=== PATIENT | female | born 1965 | race Caucasian/White ===

== ENCOUNTER 2017-04-13 20:06 | Emergency (ER) | payer BC ==
[~2017-04-13] VITALS: Ht 152.4 cm; Wt 47.8 kg
[~2017-04-13 20:06] MED LIST: ERGO500011 PO; NORT25CA2 PO; NRN/600 PO; SIMV40TA4 PO; TRAM-453 PO; TRAZ50TA35 PO
[2017-04-13 20:09] VITALS: TEMP 37.1; Ht 152.4 cm; Wt 47.8 kg
[2017-04-13] MEDS ORDERED: BUPIVACAINE 0.5 % 5 MG/1 ML MPF 30ML VIAL INFIL ONE (20:30)
[2017-04-13] MEDS ORDERED: XYLOCAINE 1%/SOD BICARB 20 ML VIAL INFIL ONE (20:30)
--- NOTE | 2017-04-13 20:47 | DIAGNOSTIC IMAGING REPORT ---
LEFT FIFTH FINGER 3 VIEWS CLINICAL HISTORY: Pain. Laceration. COMPARISON: None. DISCUSSION: The bones are mildly osteopenic. No acute fractures or dislocations are visualized. There is evidence for soft tissue injury at the level of the webspace between the fourth and fifth digits. No radiopaque foreign bodies are visualized. IMPRESSION: 1. Soft tissue injury 2. No acute fractures. No foreign bodies identified. Electronically signed by: Roberto Quinones M.D. 04/13/2017 8:46 PM Dictated Date/Time: 04/13/2017 8:45 PM
--- NOTE | 2017-04-13 21:41 | EMERGENCY ROOM VISIT NOTE ---
ED Visit Note First contact with patient: 20:18 CHIEF COMPLAINT: Laceration between left fourth and fifth fingers just prior to arrival HISTORY OF PRESENT ILLNESS: Patient is a [id number] 52-year-old white female who presents to the emergency department for evaluation of a laceration in the web space between the left fourth and fifth fingers that occurred just prior to arrival. She was "dumpster diving" and believes that she cut it on a broken piece of glass. She states bleeding was controlled with pressure. She notes 10/10 throbbing pain. She states that the finger feels numb, noticed the numbness immediately after the laceration.. She denies any foreign body sensation. REVIEW OF SYSTEMS: Review of systems as per HPI. All other systems reviewed were negative. At least 6 systems reviewed. PMH: Electronic medical records are reviewed and summarized as above/below. See Problem List. Her tetanus is up-to-date. SOCIAL HISTORY: Patient lives at home. Smoker. She is employed. PHYSICAL EXAM: Vital Signs: Reviewed Nurse's notes. There is a 1 cm long laceration on the palmar aspect of the left fifth finger, toward the web space between the fourth and fifth fingers.. The edges gape apart with traction. There is no foreign material in the wound and it looks clean. There is no bleeding. No deep structures such as tendons or nerves are seen in the base of the wound. Patient is able to flex and extend the finger fully. She has good strength with resisted flexion with the MCP, DIP and the PIP isolated. She has diminished sensation to light touch over the palmar aspect of the finger, radial side. EMERGENCY DEPARTMENT COURSE: X-rays of the left fifth finger were obtained and was unremarkable. Using sterile technique, saline and Betadine cleansing, and a 2:1 mixture of 1% plain buffered lidocaine and 0.5% Sensorcaine the laceration was repaired with 4 , 5-0 nylon sutures. Bacitracin and a light dressing were applied. Patient declined a finger splint. Possibility of a digital nerve injury was discussed with the patient. Given this, she was referred to orthopedic hand surgery for further care and evaluation. LEFT FIFTH FINGER 3 VIEWS CLINICAL HISTORY: Pain. Laceration. COMPARISON: None. DISCUSSION: The bones are mildly osteopenic. No acute fractures or dislocations are visualized. There is evidence for soft tissue injury at the level of the webspace between the fourth and fifth digits. No radiopaque foreign bodies are visualized. IMPRESSION: 1. Soft tissue injury 2. No acute fractures. No foreign bodies identified. Problem List Medical Problems: (1) Dyslipidemia Status: Chronic (2) Hypertension Status: Chronic Current/Historical Medications Scheduled Simvastatin (Zocor), 80 MG PO QAM Tramadol Hcl (Ultram), 50 MG PO QID PRN Allergies Coded Allergies: No Known Allergies (Unverified , 04/13/17) Vital Signs Date Time Temp Pulse Resp B/P (MAP) Pulse Ox O2 Delivery O2 Flow Rate FiO2 04/13/17 21:59 87 18 132/75 99 04/13/17 20:09 37.1 87 18 135/78 97 Room Air Medications Administered Medications (Trade) Dose Ordered Sig/Jack Route Start Time Stop Time Status Last Admin Dose Admin Lidocaine HCl (Buffered Lidocaine 1% Inj) 20 ml ONE ONCE INFIL 04/13/17 20:30 04/13/17 20:31 DC 04/13/17 20:30 20 ML Bupivacaine HCl (Marcaine 0.5% MPF Inj) 30 ml NOW ONCE INFIL 04/13/17 20:30 04/13/17 20:31 DC 04/13/17 20:30 30 ML Departure Information Impression Primary Impression: Laceration of finger Referrals Joel Lagunas M.D. (PCP) Newton Beckham MD Patient Instructions My [facility] Additional Instructions Keep wound clean and dry. Do not allow any crusting or dried blood to accumulate on sutures. Clean the wound gently with mild soap and water. Use an antibiotic ointment for 3-4 days, then let wound dry. Suture removal in 10- 12 days. Return sooner for any signs of infection (increasing redness, swelling , drainage). Ice and elevate for swelling and pain. Ibuprofen 600 mg and Tylenol 1000 mg every 6 hrs for pain. Follow-up with orthopedic hand surgery for further care and evaluation of your suspected digital nerve injury. Problem Qualifiers Primary Impression: Laceration of finger Encounter type: initial encounter Finger: little finger Damage to nail status: without damage Foreign body presence: without foreign body Laterality: left Qualified Codes: S61.217A - Laceration without foreign body of left little finger without damage to nail, initial encounter
[2017-04-13 21:59] VITALS: BP 132/75; PULSE 87; O2SAT 99
== END 2017-04-13 22:02 | disposition home or self-care (01) ==
LOC: C.EDB 20:07 → C.EDD 22:02
DX: S61.217A Laceration without foreign body of left little finger without damage to nail, initial encounter (principal); W25.XXXA Contact with sharp glass, initial encounter; E78.5 Hyperlipidemia, unspecified; I10 Essential (primary) hypertension; F17.210 Nicotine dependence, cigarettes, uncomplicated; M85.80 Other specified disorders of bone density and structure, unspecified site

== ENCOUNTER → 2017-04-16 | Outpatient (CLI) | payer BC ==
[~2017-04-16] MED LIST changes: -ERGO500011 PO; -NORT25CA2 PO; -NRN/600 PO; -TRAZ50TA35 PO
== END | disposition home or self-care (01) ==
LOC: C.CPL 10:42
PROVIDERS: ATTEND Orthopaedic Surgery
DX: S64.40XA Injury of digital nerve of unspecified finger, initial encounter (principal); X58.XXXA Exposure to other specified factors, initial encounter